=== PATIENT | female | born 1990 | race African-American/Black ===

== ENCOUNTER 2023-07-11 22:50 | Emergency (ER) | payer OTHER ==
[2023-07-11 22:55] VITALS: BP 141/89; PULSE 85; RESP 20; TEMP 98.1; BMI 32.9
== END 2023-07-12 02:31 | disposition home or self-care (01) ==
LOC: JER 22:50
DX: R05.9 Cough, unspecified (principal); Z20.822 Contact with and (suspected) exposure to COVID-19
CPT/HCPCS: 0241U-QW; 99283-25

== ENCOUNTER 2023-09-15 01:04 | Emergency (ER) | payer OTHER ==
[2023-09-15 01:08] VITALS: BP 106/69; PULSE 87; RESP 18; TEMP 98.1; BMI 35.1
[2023-09-15 03:15] LABS: EOS % 8.4 % (0-4.5); HEMATOCRIT 24.6 % (32.4-45.2); HEMOGLOBIN 7.9 GM/dL (10.7-15.3); LYMPH % 23.9 % (8-40); MCH 23.4 pg (25.7-33.7); MEAN CELL VOLUME 73.1 fl (80-96); MEAN PLT VOLUME 7.6 fl (7.5-11.1); MONO % 8.1 % (3.8-10.2); NEUT % 58.6 % (42.8-82.8); PLATELET COUNT 542 10^3/uL (134-434); RBC 3.36 M/mm3 (3.60-5.2); RDW 17.9 % (11.6-15.6); WHITE BLOOD COUNT 9.5 K/mm3 (4.0-10.0)
[2023-09-15 03:18] LABS: EPI CELLS >36 /uL (0-25.1); HYALINE CASTS 2 /uL (0-3.1); URINE APPEARANCE TURBID; URINE BILIRUBIN NEGATIVE (NEGATIVE); URINE COLOR ORANGE; URINE GLUCOSE (UA) NEGATIVE (NEGATIVE); URINE KETONE TRACE (NEGATIVE); URINE LEUK ESTERASE 2+ (NEGATIVE); URINE NITRITE NEGATIVE (NEGATIVE); URINE PROTEIN 2+ (NEGATIVE); URINE WBC 1147 /uL (0-25.8)
[2023-09-15 03:33] LABS: POTASSIUM 3.6 mmol/L (3.5-5.1)
[2023-09-15 03:34] LABS: CALCIUM 9.1 mg/dL (8.5-10.1)
[2023-09-15 03:35] LABS: ALBUMIN 3.8 g/dl (3.4-5.0); BLOOD UREA NITROGEN 16.1 mg/dL (7-18)
[2023-09-15 03:36] LABS: PROTHROMBIN TIME (PATIENT) 11.3 SEC (9.7-13.0)
[2023-09-15 03:38] LABS: CREATININE 0.7 mg/dL (0.55-1.3)
[2023-09-15 03:39] LABS: ACTIVATED PTT 31.3 SECONDS (25.2-36.5); BILIRUBIN,TOTAL 0.2 mg/dL (0.2-1); TOT PROT 7.5 g/dl (6.4-8.2)
[2023-09-15] MEDS ORDERED: CEFTRIAXONE 1 GM/50 ML BAG ONE (04:47)
[2023-09-15] MEDS: CEFTRIAXONE 1,000 MG in DEXTROSE 5%-WATER - 50 ML IVPB ONE (04:52)
[2023-09-15 05:15] LABS: YEAST REVIEW (NEGATIVE)
== END 2023-09-15 05:28 | disposition left against medical advice (07) ==
LOC: JER 01:04
DX: N93.9 Abnormal uterine and vaginal bleeding, unspecified (principal); R25.2 Cramp and spasm
CPT/HCPCS: 36415; 76830-TC; 80053; 81003; 84702; 85025; 85610; 85730; 99284-25